=== PATIENT | male | born 1945 | race Caucasian/White ===

== ENCOUNTER 2016-11-03 13:10 | Inpatient (IN) | payer OTHER ==
[~2016-11-03] VITALS: Ht 170.2 cm; Wt 72.1 kg
[2016-11-03] VITALS (22 sets, daily range): BP systolic 79–113; BP diastolic 51–73
--- NOTE | ~2016-11-03 | EKG ---
[address] [place] [address] ELECTROCARDIOGRAM REPORT Name: DEBBIE VERNON Room #: 245-P ADM IN M.R.#: [id number] Admission: 11/03/16 Attend Phys: Tomas Angulo MD Discharge: Date of : 47 Report #: [id number] THIS REPORT FOR: //name// [facility] ED Test Date: 2016-11-03 Test Time: 13:30:52 Pat Name: DEBBIE VERNON Department: Room: [facility] Gender: M [employer]: : 1945 Requested By: Bobby Calloway Order Number: [id number] MD: Neftaly Garcia Measurements Intervals [place] Rate: 109 P: 35 GA: 145 QRS: -18 QRSD: 92 T: 18 QT: 341 QTc: 460 Interpretive Statements Sinus tachycardia Low voltage, extremity leads Abnormal R-wave progression, late transition Compared to ECG 08/16/2015 21:46:07 Low QRS voltage now present Electronically Signed On 11-04-2016 7:51:50 CDT by Neftaly Garcia [email or web address] <ELECTRONICALLY SIGNED> By: Neftaly Garcia MD, [facility] 11/04/16 0751 1330 1330 Neftaly Garcia MD, [facility] /EPI
[~2016-11-03 13:10] MED LIST: ACETAMINOP160 MG/12 PER TUBE; ACETAMINOP160 MG/12 PO; BAYER CHEWABLE81 MG PO; CHLORPROMAZINE25 M1 PO; COLACE100 MG PO; LEVEMIR SUBQ; LIORESAL 10 MG10 MG PO; LIPITOR 20 MG T20 M1 PO; LISINOPRIL10 MG PO; LISINOPRIL20 MG PO; METFORMIN HCL500 MG PO; NORCO 5-325 TA1 EACH PO; NOVOLIN R100 UNIT/1 IJ; NOVOLIN R100 UNIT/1 SUBQ; PEPCID20 MG PO; POTASSIUM20 PO; REGLAN 10 MG TA10 MG PO; SENNA8.6 MG PO; SEROQUEL 25 MG25 M1 PO; TEARS NATURALE1 EACH OPHTHALMIC; TYLENOL325 MG PO
[2016-11-03 13:26] LABS: HEMATOCRIT 40.6 % (42.0-52.0); HEMOGLOBIN 13.8 gm/dL (14.0-18.0); MCH 31.8 pg (26.0-34.0); MCV 93.6 fL (80.0-100.0); PLATELET COUNT 181 thou/uL (150-400); RBC 4.34 mil/uL (4.50-6.00); RDW 12.8 % (10.5-14.5); WBC 13.6 thou/uL (4.0-11.0)
[2016-11-03 13:27] LABS: MANUAL DIFF YES
[2016-11-03 13:46] LABS: ANION GAP 19 mmol/L (7-16); BUN 29 mg/dL (7-18); CALCIUM 8.9 mg/dL (8.5-10.1); CHLORIDE 92 mmol/L (98-107); CO2 18 mmol/L (21-32); CREATININE 1.9 mg/dL (0.7-1.3); POTASSIUM 4.5 mmol/L (3.5-5.1); SODIUM 129 mmol/L (136-145)
[2016-11-03 13:56] LABS: ALKALINE PHOSPHATASE 73 U/L (46-116); DIRECT BILIRUBIN 0.2 mg/dL (<0.1-0.3); NT-PRO BRAIN NAT PEPTIDE 162 pg/mL (<300); SGOT 20 U/L (15-37); SGPT 39 U/L (30-65); TOTAL BILIRUBIN 1.1 mg/dL (<0.1-1.0); TOTAL PROTEIN 5.9 g/dL (6.4-8.2); TROPONIN-I < 0.04 ng/mL (<0.04-0.07)
[2016-11-03 14:08] LABS: ABSOLUTE NEUTROPHILS 11.4 thou/uL (1.4-8.2); METAMYELOCYTES 1 %; PLATELET ESTIMATE NORMAL; TOTAL CELL COUNT 100
[2016-11-03 14:12] LABS: GLUCOSE 826 mg/dL (74-106)
[2016-11-03 14:31] LABS: ABG SAMPLE TYPE ARTERIAL; BE(vivo) -6.6 mmol/L (-2 to +3); HCO3 18.1 mmol/L (22.0-26.0); LACTATE 2.64 mmol/L (0.5-2.0); O2(CT) 18.1 mL/dL (15.0-23.0); O2Hb 93.8 % (92.0-98.0); PCO2 33.7 mmHg (35.0-45.0); PO2 84.2 mmHg (80.0-100.0); pH 7.347 (7.360-7.450); tCO2 19.1 mmol/L (24.0-30.0)
[2016-11-03 14:33] LABS: ABG COMMENT NO COMPLICATIONS; STICK SITE R.RADIAL
[2016-11-03 14:39] LABS: MAGNESIUM 1.5 mg/dL (1.8-2.4)
[2016-11-03 15:10] LABS: CALCIUM 8.6 mg/dL (8.5-10.1); CREATININE 1.6 mg/dL (0.7-1.3); POTASSIUM 4.6 mmol/L (3.5-5.1)
[2016-11-03 15:13] LABS: PHOSPHORUS 3.6 mg/dL (2.5-4.9); TOTAL PROTEIN 5.8 g/dL (6.4-8.2)
[2016-11-03 19:55] LABS: CALCIUM 8.7 mg/dL (8.5-10.1); CREATININE 1.4 mg/dL (0.7-1.3); MAGNESIUM 1.7 mg/dL (1.8-2.4); POTASSIUM 3.3 mmol/L (3.5-5.1)
[2016-11-04] VITALS (21 sets, daily range): BP systolic 81–108; BP diastolic 45–78
[2016-11-04 02:03] LABS: HEMATOCRIT 35.6 % (42.0-52.0); HEMOGLOBIN 12.5 gm/dL (14.0-18.0); MCH 32.5 pg (26.0-34.0); MCV 92.8 fL (80.0-100.0); RBC 3.84 mil/uL (4.50-6.00); RDW 12.8 % (10.5-14.5); WBC 15.1 thou/uL (4.0-11.0)
[2016-11-04 02:08] LABS: CALCIUM 7.8 mg/dL (8.5-10.1); CREATININE 0.9 mg/dL (0.7-1.3); POTASSIUM 3.9 mmol/L (3.5-5.1)
[2016-11-04 02:12] LABS: ALBUMIN 2.5 g/dL (3.4-5.0); MAGNESIUM 1.9 mg/dL (1.8-2.4); PHOSPHORUS 3.2 mg/dL (2.5-4.9)
[2016-11-04 06:53] LABS: ALBUMIN 2.4 g/dL (3.4-5.0); CREATININE 0.9 mg/dL (0.7-1.3); MAGNESIUM 1.8 mg/dL (1.8-2.4); PHOSPHORUS 3.3 mg/dL (2.5-4.9); POTASSIUM 3.7 mmol/L (3.5-5.1)
[2016-11-04 12:20] LABS: CALCIUM 7.4 mg/dL (8.5-10.1); CREATININE 0.9 mg/dL (0.7-1.3)
[2016-11-04 12:23] LABS: POTASSIUM 4.8 mmol/L (3.5-5.1)
[2016-11-04 12:24] LABS: ALBUMIN 2.4 g/dL (3.4-5.0); MAGNESIUM 1.6 mg/dL (1.8-2.4); PHOSPHORUS 3.9 mg/dL (2.5-4.9)
[2016-11-05 04:00] VITALS: BP 100/74
[2016-11-05 04:41] LABS: ABSOLUTE NEUTROPHILS 5.9 thou/uL (1.4-8.2); BASOPHILS 0.4 % (0.0-2.0); EOSINOPHILS 2.3 % (0.0-3.0); HEMATOCRIT 37.5 % (42.0-52.0); HEMOGLOBIN 13.1 gm/dL (14.0-18.0); LYMPHOCYTES 23.9 % (24.0-44.0); MCH 32.6 pg (26.0-34.0); MCV 93.2 fL (80.0-100.0); PLATELET COUNT 165 thou/uL (150-400); POLYS 62.4 % (36.0-66.0); RBC 4.02 mil/uL (4.50-6.00); RDW 12.9 % (10.5-14.5); WBC 9.5 thou/uL (4.0-11.0)
[2016-11-05 04:58] LABS: MANUAL DIFF NO
[2016-11-05 07:31] VITALS: BP 118/81
[2016-11-05 08:43] LABS: CALCIUM 8.5 mg/dL (8.5-10.1); CREATININE 0.9 mg/dL (0.7-1.3); POTASSIUM 3.9 mmol/L (3.5-5.1)
[2016-11-05 17:38] VITALS: BP 114/73
[2016-11-05 19:27] VITALS: BP 96/66
[2016-11-06 04:02] VITALS: BP 111/70
[2016-11-06 04:07] LABS: HEMATOCRIT 39.3 % (42.0-52.0); HEMOGLOBIN 13.7 gm/dL (14.0-18.0); MCH 32.1 pg (26.0-34.0); MCHC 34.9 g/dL (28.0-37.0); MCV 91.9 fL (80.0-100.0); RBC 4.28 mil/uL (4.50-6.00); RDW 12.7 % (10.5-14.5); WBC 6.7 thou/uL (4.0-11.0)
[2016-11-06 04:13] LABS: CALCIUM 8.8 mg/dL (8.5-10.1); CREATININE 0.8 mg/dL (0.7-1.3); MAGNESIUM 1.7 mg/dL (1.8-2.4); POTASSIUM 3.5 mmol/L (3.5-5.1)
[2016-11-06 08:00] VITALS: BP 96/64
[2016-11-06] MEDS ORDERED: LANTUS100 UNIT/M SUBQ (11:59)
[2016-11-06 17:20] VITALS: BP 96/64
== END 2016-11-06 18:31 | disposition home or self-care (01) | DRG 682 ==
LOC: ER 13:10 → EROBS 14:23 → ICU 14:23 → 3N 11-04 19:06
PROVIDERS: Family Medicine; Nurse Practitioner
DX: N17.9 Acute kidney failure, unspecified (principal); E13.10 Other specified diabetes mellitus with ketoacidosis without coma; E44.1 Mild protein-calorie malnutrition; E87.1 Hypo-osmolality and hyponatremia; I10 Essential (primary) hypertension; I95.9 Hypotension, unspecified; E86.1 Hypovolemia; D72.829 Elevated white blood cell count, unspecified; E86.0 Dehydration; Z79.899 Other long term (current) drug therapy; Z86.73 Personal history of transient ischemic attack (TIA), and cerebral infarction without residual deficits; Z88.8 Allergy status to other drugs, medicaments and biological substances; Z91.013 Allergy to seafood; Z83.3 Family history of diabetes mellitus; Z82.49 Family history of ischemic heart disease and other diseases of the circulatory system; Z68.24 Body mass index [BMI] 24.0-24.9, adult
CPT/HCPCS: 10078; 10096

== ENCOUNTER 2018-01-04 10:18 | Emergency (ER) | payer OTHER ==
[~2018-01-04] VITALS: Ht 170.2 cm; Wt 66.7 kg
--- NOTE | ~2018-01-04 | EKG ---
[address] [address] ELECTROCARDIOGRAM REPORT Name: DEBBIE VERNON Room #: DEP [facility]#: [id number] Admission: 01/04/18 Attend Phys: Discharge: 01/04/18 Date of : 47 Report #: [id number] THIS REPORT FOR: //name// [facility] ED Test Date: 2018-01-04 Test Time: 10:46:26 Pat Name: DEBBIE VERNON Department: Room: Gender: M [employer]: ZAG : 1945 Requested By: Tanmay Echols Order Number: [id number] MD: Larry Anders Measurements Intervals [place] Rate: 101 P: 46 IA: 141 QRS: -33 QRSD: 90 T: 77 QT: 348 QTc: 452 Interpretive Statements Sinus tachycardia Atrial premature complexes Left axis deviation Low voltage, extremity leads Compared to ECG 01/21/2017 19:48:34 Electronically Signed On 01-04-2018 17:16:48 CDT by Larry Anders [email or web address] <ELECTRONICALLY SIGNED> By: Larry Anders MD 01/04/18 1716 45 45 Larry Anders MD /[facility]
[~2018-01-04 10:18] MED LIST changes: +LANTUS100 UNIT/M SUBQ
[2018-01-04] MEDS ORDERED: HUMALOG100 UNIT/1 SUBQ (11:04)
[2018-01-04] MEDS ORDERED: LEVEMIR SUBQ (11:04)
[2018-01-04 11:12] LABS: ABSOLUTE NEUTROPHILS 7.4 thou/uL (1.4-8.2); ANION GAP 9 mmol/L (7-16); BASOPHILS 0.5 % (0.0-2.0); BUN 9 mg/dL (7-18); CALCIUM 9.8 mg/dL (8.5-10.1); CHLORIDE 93 mmol/L (98-107); CO2 28 mmol/L (21-32); CREATININE 1.1 mg/dL (0.7-1.3); EOSINOPHILS 0.7 % (0.0-3.0); GLUCOSE 430 mg/dL (74-106); HEMATOCRIT 44.9 % (42.0-52.0); HEMOGLOBIN 15.8 gm/dL (14.0-18.0); LYMPHOCYTES 24.2 % (24.0-44.0); MCH 31.9 pg (26.0-34.0); MCHC 35.3 g/dL (28.0-37.0); MCV 90.5 fL (80.0-100.0); MONOCYTES 11.1 % (1.0-8.0); PLATELET COUNT 258 thou/uL (150-400); POLYS 63.5 % (36.0-66.0); POTASSIUM 3.3 mmol/L (3.5-5.1); RBC 4.96 mil/uL (4.50-6.00); RDW 12.6 % (10.5-14.5); SODIUM 130 mmol/L (136-145); WBC 11.7 thou/uL (4.0-11.0)
[2018-01-04 11:22] LABS: MAGNESIUM 1.8 mg/dL (1.8-2.4); SGOT 19 U/L (15-37); SGPT 27 U/L (30-65); TOTAL BILIRUBIN 1.6 mg/dL (<0.1-1.0); TROPONIN-I <0.06 ng/mL (<0.06)
== END 2018-01-04 12:36 | disposition home or self-care (01) ==
LOC: ER 10:18
PROVIDERS: Emergency Medicine
DX: E11.65 Type 2 diabetes mellitus with hyperglycemia (principal); I10 Essential (primary) hypertension; Z79.4 Long term (current) use of insulin; Z88.8 Allergy status to other drugs, medicaments and biological substances; Z91.013 Allergy to seafood